=== PATIENT | male | born 1950 | race American Indian/Alaskan Native ===

== ENCOUNTER 2016-05-31 10:51 | Outpatient (CLI) | payer MEDICARE ==
[2016-05-31] MEDS ORDERED: NACL ONE (11:19)
--- NOTE | 2016-05-31 16:44 | Cat Scan Report ---
CT OF THE NECK WITH IV CONTRAST. FINDINGS: The parotid and submandibular glands are normal. Multiple small lymph nodes are seen in the submandibular region and the posterior triangle, but no lymphadenopathy is present. No soft tissue masses are seen. There are no glottic or subglottic abnormalities. The thyroid gland is unremarkable. Mucoperiosteal thickening is seen in the right maxillary sinus. Impression: Right maxillary sinusitis, otherwise unremarkable study.
== END 2016-05-31 10:52 | disposition home or self-care (01) ==
LOC: CT 10:51
PROVIDERS: ATTEND Internal Medicine
DX: J32.0 Chronic maxillary sinusitis (principal); M54.2 Cervicalgia; M54.9 Dorsalgia, unspecified
CPT/HCPCS: 70491; Q9967